=== PATIENT | male | born 1980 | race Caucasian/White ===

== ENCOUNTER 2022-08-08 10:12 | Emergency (ER) | payer SELFPAY ==
[~2022-08-08] VITALS: Ht 165.1 cm; Wt 70.0 kg
[2022-08-08] VITALS (8 sets, daily range): BP systolic 151–188; BP diastolic 98–129
[2022-08-08] MEDS ORDERED: TRAMADOL HYDROC50 M1 PO (11:17)
[2022-08-08] MEDS ORDERED: CEPHALEXIN500 M1 PO (11:18)
== END 2022-08-08 12:07 | disposition home or self-care (01) | DRG 563 ==
LOC: ED 10:12
PROC: 2W3QX1Z Immobilization of Right Lower Leg using Splint (ICD-10-PCS; principal; 2022-08-08)
DX: S82.831A Other fracture of upper and lower end of right fibula, initial encounter for closed fracture (principal); L03.115 Cellulitis of right lower limb; S90.511A Abrasion, right ankle, initial encounter; F17.210 Nicotine dependence, cigarettes, uncomplicated; X37.0XXA Hurricane, initial encounter; Y93.H9 Activity, other involving exterior property and land maintenance, building and construction; Y92.007 Garden or yard of unspecified non-institutional (private) residence as the place of occurrence of the external cause

== ENCOUNTER 2022-12-05 07:36 | Emergency (ER) | payer SELFPAY ==
[~2022-12-05] VITALS: Ht 172.7 cm; Wt 65.8 kg
[2022-12-05] VITALS (14 sets, daily range): BP systolic 140–181; BP diastolic 84–121
[~2022-12-05 07:36] MED LIST: CEPHALEXIN500 M1 PO; TRAMADOL HYDROC50 M1 PO
[2022-12-05 08:09] LABS: BASO% 0.2 % (0-3); EOS% 0.8 % (0-8); HEMATOCRIT 48.5 % (39.0-50.0); HEMOGLOBIN 16.6 g/dl (14.0-18.0); IMMATURE GRANULOCYTES 0.1 % (0.0-5.0); LYMPH% 18.6 % (15-41); MEAN CELL VOLUME 101.3 fL CALC (80.0-100.0); MEAN CORPUSCULAR HGB 34.7 pG CALC (26.0-32.0); MEAN CORPUSCULAR HGB CONC 34.2 g/dL CAL (32.0-36.0); MONO% 9.8 % (2-13); NEUT# 9.32 thou/uL (1.82-7.42); NEUT% 70.5 % (42-76); RED BLOOD COUNT 4.79 mill/uL (4.70-6.10); RED CELL DISTRI WIDTH 13.6 % (11.5-15.5)
[2022-12-05 08:32] LABS: ALBUMIN 4.6 g/dL (3.2-5.0); ALKALINE PHOSPHATASE 68 u/l (38-126); ANION GAP 10 (6-22 (CALC)); BILIRUBIN, TOTAL 0.4 mg/dL (0.2-1.3); BUN 7 mg/dL (9-20); BUN/CREATININE RATIO 9 (12-20 (CALC)); CARBON DIOXIDE 25 mmol/l (22-30); CHLORIDE 105 mmol/l (95-108); CREATININE 0.8 mg/dL (0.7-1.3); GFR FOR AFR.AMER. > 60 ML/MIN (>=60 (CALC)); GFR OTHER RACES > 60 ML/MIN (>=60 (CALC)); SGOT/AST 35 u/l (17-59); SODIUM 136 mmol/l (137-146); TOTAL PROTEIN 8.2 g/dL (6.3-8.2)
[2022-12-05] MEDS ORDERED: PERCOCET 5/325M1 TAB PO (11:22)
[2022-12-05] MEDS ORDERED: MOTRIN800 MG PO (11:22)
== END 2022-12-05 11:52 | disposition home or self-care (01) | DRG 728 ==
LOC: ED 07:36
PROVIDERS: Emergency Medicine
DX: N45.3 Epididymo-orchitis (principal); F17.210 Nicotine dependence, cigarettes, uncomplicated